=== PATIENT | female | born 1985 | race Asian ===

== ENCOUNTER 2019-01-16 16:34 | Emergency (ER) | payer SELFPAY ==
[~2019-01-16] VITALS: Ht 152.4 cm; Wt 185.0 kg
[2019-01-16 17:28] VITALS: BP 123/77
[2019-01-16] MEDS ORDERED: IBUPROFEN 600 MG TABLET PO ONE (18:00)
== END 2019-01-16 18:46 | disposition home or self-care (01) ==
LOC: EMS 16:34
DX: S33.5XXA Sprain of ligaments of lumbar spine, initial encounter (principal); Z88.1 Allergy status to other antibiotic agents; V49.9XXA Car occupant (driver) (passenger) injured in unspecified traffic accident, initial encounter; Y93.89 Activity, other specified; Y92.89 Other specified places as the place of occurrence of the external cause; Y99.8 Other external cause status